=== PATIENT | male | born 1990 | race Caucasian/White ===

== ENCOUNTER 2016-11-14 03:27 | Emergency (ER) | payer SELFPAY ==
[~2016-11-14] VITALS: Ht 170.2 cm; Wt 80.0 kg
[~2016-11-14 03:27] MED LIST: BACT800T5 PO; IBUP800T23 PO
[2016-11-14 03:30] VITALS: BP 154/82; PULSE 112; RESP 16; TEMP 97.7; O2SAT 98
[2016-11-14] MEDS ORDERED: CLINDAMYCIN 150 MG CAP PO ONE (04:15)
[2016-11-14] MEDS ORDERED: SULFAMETHOXAZOLE-TRIMETHOPRIM DS 800-160 MG TAB PO ONE (04:15)
[2016-11-14] MEDS ORDERED: LIDOCAINE HCL 1% 50 ML VIAL INFIL ONE (04:15)
[2016-11-14] MEDS ORDERED: BUPIVACAINE HCL PF 0.5% 10 ML VIAL INFIL ONE (04:15)
--- NOTE | 2016-11-14 04:15 | PD ---
HPI Chief Complaint: Skin Problem Time Seen by Provider: 04:13 Travel History International Travel<30 days: No Contact w/Intl Traveler<30days: No Traveled to known affect area: No History of Present Illness HPI Patient comes in complaining of painful lump on his right thumb ongoing for approximately a week. Patient's having throbbing pain at the site. He states that when he washes his hands in the bathroom here in the emergency department it ruptured and started leaking which helped improve his pain. Patient denies doing anything anything else for pain. Pain is worse with palpation and movement. Denies any fevers. Patient is concerned as he had MRSA in the past. Patient reports he has been trying to keep it clean hoping it would heal on it 's own. PFSH Past Medical History Medical History: Denies Significant Hx Diminished Hearing: No Tetanus Vaccination: < 5 Years Influenza Vaccination: No Social History Alcohol Use: Yes (WEEKENDS) Tobacco Use: Yes (/) Substance Use: No Allergies-Medications (Allergen,Severity, Reaction): Coded Allergies: *MDRO Multi-Drug Resistant Organism (Verified Adverse Reaction, Unknown, ) MRSA LEg wound 05/21/16 Reported Meds & Prescriptions Reported Meds & Active Scripts Active Clindamycin (Clindamycin HCl) 150 Mg Cap 2 Tab PO Q6H 10 Days Bactrim DS (Sulfamethoxazole-Trimethoprim) 800-160 Mg Tab 1 Tab PO BID Review of Systems Except as stated in HPI: all other systems reviewed are Neg Physical Exam Narrative GENERAL: Well-developed, well nourished, in no acute distress, and non-ill appearing. SKIN: Warm and dry. Fluctuant paronychia noted right thumb. Tender to palpation without crepitus. There is no subungual involvement. HEAD: Atraumatic. Normocephalic. EYES: Pupils equal and round. EOMI. No scleral icterus. No injection or drainage. ENT: No nasal bleeding or discharge. Mucous membranes pink and moist. NECK: Trachea midline. Supple. No nuclear rigidity. RESPIRATORY: No accessory muscle use. No respiratory distress. MUSCULOSKELETAL: No obvious deformities. No clubbing. No cyanosis. No edema. Full range of motion. NEUROLOGICAL: Awake and alert. No obvious cranial nerve deficits. Motor grossly within normal limits. Normal speech. PSYCHIATRIC: Appropriate mood and affect; insight and judgment normal. Data Data Last Documented VS Vital Signs Date Time Temp Pulse Resp B/P Pulse Ox O2 Delivery O2 Flow Rate FiO2 11/14/16 04:09 14 11/14/16 03:30 97.7 112 154/82 98 Room Air Orders Wound Culture And Gram Stain (11/14/16 04:11) Bupivacaine Pf 0.5% Inj (Marcaine Pf 0.5 (11/14/16 04:15) Lidocaine 1% Inj (50 Ml) (Xylocaine 1% I (11/14/16 04:15) Sulfamet-Trimeth Ds 800-160 Mg (Bactrim (11/14/16 04:15) Clindamycin (Cleocin) (11/14/16 04:15) MDM Medical Decision Making Medical Screen Exam Complete: Yes Emergency Medical Condition: Yes Differential Diagnosis Abscess, cellulitis, paronychia, felon, other Narrative Course The patient presented with a paronychia to the finger. There was no extending cellulitis or evidence of suppurative tendonitis. There was no evidence of subungual involvement or felon. Incision and drainage was performed and small pus was liberated. The patient was given wound care and infection warnings and discharged home on pain medicines and antibiotics. The patient was also instructed to follow up with referred physician and warnings to return to ED if worsens, or as directed. The patient agreed with plan. Patient in no obvious distress upon re-evaluation. Patient was asked if they wanted to speak to my attending, which the patient did not wish to do at this time. Any questions/concerns in reference to patient diagnosis/condition discussed and clarified prior to patient's discharge. Reinforced sheer importance of close follow up with patient's primary physician or primary care clinic or return here in 2 days for recheck. Instructed patient to return to ED immediately, if symptoms return/worsen. Pt showed understanding of above instructions. Further instructions and recommendations were detailed in discharge paperwork. Pt ambulated without difficulty out of ED at discharge. Procedures Procedure Narrative Verbal consent was obtained. Area was cleaned and prepped using Betadine solution. Digital block was performed using a mixture of lidocaine without epi and Marcaine without epi. Small incision was made in the paronychia and using a #15 blade scalpel. Scant amount of purulent drainage was removed. Cultures were obtained. Wound was irrigated with copious amounts of normal saline. Sterile dressing was placed by RN. Patient tolerated procedure well. There was no complications. Diagnosis Primary Impression: Paronychia of finger of right hand Patient Instructions: General Instructions, Paronychia (ED) Additional Instructions: Follow-up with your primary care physician or return here in 2 days for recheck. Take all medication as prescribed. Keep wound dry and clean as possible using soap and water. Return to the emergency department if symptoms get worse. Med/Other Pt SpecificInfo: Prescription(s) given Scripts Clindamycin 150 Mg Cap2 Tab PO Q6H 10 Days Ref 0 Prov:Makenzie Mazariegos MD 11/14/16 Sulfamethoxazole-Trimethoprim (Bactrim DS)800-160 Mg Tab1 Tab PO BID #20 TAB Ref 0 Prov:Makenzie Mazariegos MD 11/14/16 Disposition: 01 DISCHARGE HOME Condition: Stable Sy Choe Nov 14, 2016 04:15
[2016-11-14] MEDS ORDERED: BACT800T5 PO (04:41)
[2016-11-14] MEDS ORDERED: CLIN1CAP5 PO (04:41)
== END 2016-11-14 04:50 | disposition home or self-care (01) ==
LOC: NEPB 03:27
DX: L03.011 Cellulitis of right finger (principal); B95.1 Streptococcus, group B, as the cause of diseases classified elsewhere; B95.62 Methicillin resistant Staphylococcus aureus infection as the cause of diseases classified elsewhere; F17.210 Nicotine dependence, cigarettes, uncomplicated
CPT/HCPCS: 10060; 86403; 87070; 87186

== ENCOUNTER 2017-01-09 01:12 | Emergency (ER) | payer SELFPAY ==
[~2017-01-09] VITALS: Ht 167.6 cm; Wt 75.0 kg
[~2017-01-09 01:12] MED LIST changes: +CLIN1CAP5 PO; -IBUP800T23 PO
[2017-01-09 01:15] VITALS: BP 123/83; PULSE 84; RESP 16; TEMP 97.8; O2SAT 98
[2017-01-09] MEDS ORDERED: BACT2OIN TOPICAL (01:35)
[2017-01-09] MEDS ORDERED: CLIN1CAP6 PO (01:35)
[2017-01-09] MEDS ORDERED: BACT800T5 PO (01:35)
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
[2017-01-09] MEDS ORDERED: SULFAMETHOXAZOLE-TRIMETHOPRIM DS 800-160 MG TAB PO ONE (01:45)
[2017-01-09] MEDS ORDERED: CLINDAMYCIN PHOS 900 MG/6 ML VIAL IM ONE (01:45)
== END 2017-01-09 06:25 | disposition home or self-care (01) ==
LOC: NEPC 01:12
DX: L08.9 Local infection of the skin and subcutaneous tissue, unspecified (principal); Z86.14 Personal history of Methicillin resistant Staphylococcus aureus infection
CPT/HCPCS: 96372